=== PATIENT | male | born 1970 | race African-American/Black ===

== ENCOUNTER → 2019-07-03 | Outpatient (CLI) | payer BC, OTHER ==
--- NOTE | 2019-07-04 00:48 | DRAGON STRESS TEST REPORT ---
Exercise EKG treadmill Cardiolite stress test using SPECT. Data procedure: 07/03/2019. Ordering Physician: Dr. Luke Guardado. Patient Status: Outpatient Indication:: Abnormal EKG coronary risk factors:. Age, hypertension, and diabetes mellitus. Significant physical findings prior to stress testing show a blood pressure of 150/93, and a heart rate of 67 beats per minute. Auscultation of the heart shows normal S1 and S2. No S3 or S4 gallops. Systolic murmur in the left sternal border and apex. Lungs are clear to auscultation and percussion. Resting 12-lead EKG:. Sinus Rhythm. LVH. Nonspecific minor T changes lateral leads. Procedure: The patient was excised on a standard Velasquez protocol. . The patient walked a total of 6 minutes and 201 seconds on this protocol and reached a peak heart rate of 150 beats per minute, which is 88 % maximum predicted heart rate for age. This is at a workload of 7 METS. The test was stopped because of achievement of target heart rate.. The patient described no symptoms of chest pain/discomfort. Exercise EKG's show: There is no EKG evidence of exercise-induced ischemia Arrhythmias seen: None. The blood pressure response was hypertensive at peak exercise the blood pressure was 199/104 millimeters of Hg. The double product was 28.35 K. Summary of findings and interpretation: 1. No chest pain or chest discomfort symptoms reproduced. 2. No EKG evidence of ischemia in the form of ST segment depression. 3. Per tensive blood pressure response. 4. No arrhythmias seen. 5. Good exercise tolerance, good aerobic capacity. Diagnostic treadmill stress test negative for ischemia by EKG criteria. Recommendations: Correlate with nuclear Cardiolite images. Nuclear data: At rest the patient was given 12.66 millicuries of technetium 99 sestamibi, and as per protocol rest none gated SPECT images were obtained. The patient was exercised on a treadmill [see exercise physiology]. One minute prior to termination of exercise, 37.4 millicuries of technetium and there sestamibi was injected intravenously. As per protocol stress gated images were obtained. Impression: Review of images show that all segments of the myocardium had normal perfusion at rest, and normal perfusion post exercise. All segments of the myocardium had normal motion, contraction, and thickening by gated study. T. I D. ratio was normal at 1.03.. There is no transient ischemic dilatation of the left ventricle.. The computer read rest and stress left ventricular ejection fractions were 49 %, and 47 % respectively. Visually both the ejection fractions were normal in excess of 55%. Conclusions: 1. No clinical symptoms of exercise-induced myocardial ischemia at a peak heart rate of 50 beats per minute, patient having achieved 88 % of maximum predicted heart rate for age, at a workload of 7 METS. 2. No EKG evidence of exercise-induced myocardial ischemia. 3. No arrhythmias seen. 4. Hypertensive blood pressure response. 4.No scintigraphic evidence of exercise-induced myocardial ischemia. 5.No scintigraphic evidence of myocardial infarction/scar. Recommendations 1. Aggressive treatment of patient's blood pressure. 2. Check echo for LV ejection fraction correlation. 3. Aggressive coronary risk factor modification, and treatment of underlying comorbidities. MTDD
== END ==
LOC: RAD 06:33
PROVIDERS: ATTEND Physician Assistant
DX: R94.31 Abnormal electrocardiogram [ECG] [EKG] (principal); I10 Essential (primary) hypertension
CPT/HCPCS: 93017; 78452; A9500; Q9969